=== PATIENT | female | born 1950 | race Caucasian/White ===

== ENCOUNTER → 2018-11-07 | Outpatient (CLI) | payer MEDICARE, OTHER ==
[~2018-11-07] MED LIST: IOHEXOL 240 MG/ML 50ML VIAL. ONE; IOHEXOL 240 MG/ML 50ML VIAL. PO ONE; IOHEXOL 300 MG/ML 75 ML VIAL. IV ONE
--- NOTE | 2018-11-07 18:06 | RAD ---
PQRS Compliance statement: One or more of the following individualized dose reduction techniques were utilized for this examination: 1. Automated exposure control. 2. Adjustment of the mA and/or kV according to patient size. 3. Use of iterative reconstruction technique. Indication:Constipation. TECHNIQUE: CT abdomen and pelvis with IV contrast with multiplanar reformats. COMPARISON: None FINDINGS: Bilateral breast implants noted. Heart is normal in size. No pericardial or pleural effusion. Mild bibasilar dependent atelectasis. Liver, spleen, gallbladder, pancreas, adrenals and kidneys are within normal limits. No enlarged retroperitoneal or pelvic adenopathy. No free pelvic fluid or ascites. Mild circumferential wall thickening is seen of the rectosigmoid colon. Normal appendix. Sigmoid diverticulosis with pericolonic inflammatory changes. The proximal and mid sigmoid colon are distended with stool. Status post hysterectomy. Urinary bladder demonstrates no radiopaque stone. No pneumoperitoneum. No suspicious bony lesion. IMPRESSION: 1. Suggestion of proximal and mid sigmoid diverticulitis. 2. There is short segment narrowing with wall thickening of the rectosigmoid colon which may be from collapsed state or colitis although a stricture is not ruled out as there is significant colonic stool burden in the sigmoid colon upstream to this segment. Colonoscopy recommended after acute phase resolves. Electronically signed by: Russell Victor DO (11/07/2018 6:03 PM) [facility]
== END | disposition home or self-care (01) ==
LOC: CT 16:21
PROVIDERS: ATTEND Specialist
DX: K57.30 Diverticulosis of large intestine without perforation or abscess without bleeding (principal); K63.89 Other specified diseases of intestine; J98.11 Atelectasis; K59.00 Constipation, unspecified; Z90.710 Acquired absence of both cervix and uterus
CPT/HCPCS: 74177; Q9966; Q9967

== ENCOUNTER → 2020-05-29 | Outpatient (CLI) | payer MEDICARE, OTHER ==
--- NOTE | 2020-05-29 17:25 | RAD ---
Chest, PA and Lateral: Technique: PA and lateral views of the chest were obtained. History: crackles left lower lobe lung. Comparison: None. Findings: The heart and pulmonary vasculature appear within normal limits. The lungs are clear. The pleural ma rgins are clear. Impression: No acute chest process is seen. Electronically signed by: Iván Osman MD (05/29/2020 5:23 PM) [id number]
== END ==
LOC: RAD 17:09
PROVIDERS: ATTEND Specialist
DX: J01.90 Acute sinusitis, unspecified (principal)
CPT/HCPCS: 71046

== ENCOUNTER → 2020-09-19 | Outpatient (CLI) | payer MEDICARE, OTHER ==
--- NOTE | 2020-09-19 12:21 | RAD ---
EXAM: DUAL ENERGY X-RAY ABSORPTIOMETRY (DEXA). HISTORY: Postmenopausal screening. FINDINGS: The lowest measured T-score is -2.7 in the right hip, based on a bone mineral density of 0. 619 g/cm^2. Refer to the worksheets for full detail. There has been a 5.4 percent decrease in density of the right hip and 0.1 percent increase in density of the lumbar spine compared to a study performed 03/08/2012. IMPRESSION: 1. Osteoporosis. Bone mineral density yields a T-score of -2.5 or less. Fracture risk is high. 2. FRAX report: Not calculated. METHODOLOGY: Dual energy x-ray absorptiometry was performed to measure bone mineral density. The foll owing analysis is based on the 2019 Official Positions of the International Society for Clinical Dens itometry: Measurements of the hips and the average of L1-L4 are preferred. When the spine and/or hip cannot be feasibly measured or interpreted, or in the setting of hyperparathyroidism, distal radial bone minera l density may be measured. The lumbar spine T-score is based on the average bone mineral density of L1-L4. In the setting of art ifact or anatomic abnormality, some lumbar levels may be excluded, and the remaining levels used for calculation. A single lumbar level is not used for diagnosis, and if only a single level is available for assessment, another anatomic site will be used to assign a diagnosis. The hip T-score is based on the bone mineral density measurement of the femoral neck or total proxima l femur of either side, whichever is lowest. Bilateral mean values are not used for diagnosis. The forearm T-score is derived from 33% of the distal radius of the nondominant forearm. Electronically signed by: Aleshia Perez MD (09/19/2020 12:19 PM) [id number]
== END ==
LOC: DXRAD 11:17
PROVIDERS: ATTEND Specialist
DX: M81.0 Age-related osteoporosis without current pathological fracture (principal); N95.1 Menopausal and female climacteric states
CPT/HCPCS: 77080